=== PATIENT | female | born 1965 | race Caucasian/White ===

== ENCOUNTER → 2018-05-04 | Outpatient (CLI) | payer OTHER ==
--- NOTE | 2018-05-04 13:53 | PCVCIMAG ---
APPROVED REPORT Study performed: 05/04/2018 12:50:51 Exam: Stress Echocardiogram Indication: Prinzmetal Angina Patient Location: Echo lab Stress Nurse: Arianne Singleton RN Status: routine Ht: 5 ft 8 in HR: 79 bpm BP: 124/64 mmHg Rhythm: NSR Procedure The patient underwent an Exercise Stress Test using the Evgeny Protocol. Blood pressure, heart rate, and EKG were monitored. An Echocardiogram was performed by security installation sales technician in four stages in quad fashion. At peak stress, four selected images were obtained and placed side by side with resting images for comparison. Stress Test Details Stress Test: Exercise stress testing was performed using a Evgeny protocol. HR Resting HR: 79 bpmMax Heart Rate (APMHR): 167 bpm Max HR Achieved: 164 bpmTarget HR (85% APMHR): 141 bpm % of APMHR: 98 Recovery HR: 94 bpm HR response to stress: Normal HR response to stress BP Resting BP: 124/64 mmHg Max BP: 200/80 mmHg Recovery BP: 148/80 mmHg ECG Resting ECG: Sinus Rhythm Stress ECG: Sinus Rhythm ST Change: Normal Maximum ST Deviation: 0 mm Arrhythmia: PVC's Recovery ECG: Sinus Rhythm Recovery ST Change: Normal Recovery ST Deviation: 0 mm Recovery Arrhythmia: PVC Clinical Reason for Termination: Maximal effort Exercise duration: 9 min 31 sec Highest Stage Achieved: Stage 4: 4.2 mph at 16% grade. Exercise capacity: 11.60 METs Overall Exercise Capacity for Age: Good Angina Score: None Stress ECG Conclusion ECG: Non-ischemic Clinical: Non-ischemic Garcia Treadmill Score is 9.0 which is Low risk. Pre-Stress Echo The resting Echocardiogram showed normal left ventricular contractility with an estimated Ejection Fraction of about >55%. Normal wall motion in all segments on baseline images. Post-Stress Echo The stress Echocardiogram showed normal left ventricular contractility with an estimated Ejection Fraction of about 60-65%. Normal augmentation of wall motion in all segments on post stress images. Clinical No clinical or ECG evidence for ischemia. Conclusion Clinical Response: Non-ischemic Exercise Capacity: Average Stress ECG Response: Non-ischemic Stress Echo Images: Non-ischemic The left ventricle is normal in size and wall thickness in both the rest and stress images. Normal stress echocardiogram with maximal exercise stress. Other Information Study Quality: Good <Conclusion> The left ventricle is normal in size and wall thickness in both the rest and stress images. Normal stress echocardiogram with maximal exercise stress.
== END | disposition home or self-care (01) ==
LOC: PCVCIMAG 13:55
PROVIDERS: ATTEND Internal Medicine
DX: I20.1 Angina pectoris with documented spasm (principal)
CPT/HCPCS: 93325; 93351